=== PATIENT | female | born 1975 | race African-American/Black ===

== ENCOUNTER 2023-09-30 09:48 | Emergency (ER) | payer BC ==
[~2023-09-30] VITALS: Ht 172.7 cm; Wt 75.3 kg
[2023-09-30 10:06] VITALS: BP_SYST 154; PULSE 68; RESP 20; TEMP 98.1; O2SAT 100
[2023-09-30] MEDS ORDERED: KETOROLAC TROMETHAMINE 30 MG VIAL IM ONE (13:45)
[2023-09-30] MEDS ORDERED: HYDROcodone/ACETAMIN 10-325 MG TAB PO ONE (13:45)
[2023-09-30] MEDS ORDERED: LIDOCAINE PATCH 5% 1 EA TP ONE (13:45)
[2023-09-30] MEDS ORDERED: HYDR-3927 PO (13:52)
[2023-09-30] MEDS ORDERED: ACET325T PO (13:52)
[2023-09-30] MEDS ORDERED: NAPR-688 PO (13:52)
[2023-09-30] MEDS ORDERED: LIDO1ADH22 TP (13:52)
[2023-09-30] MEDS ORDERED: HYDROcodone/ACETAMIN 5-325 MG TAB (NORCO/ VICODIN) PO ONE (14:00)
[2023-09-30 14:28] VITALS: BP_SYST 140; PULSE 82; RESP 18; TEMP 98.1; O2SAT 100
== END 2023-09-30 14:28 | disposition home or self-care (01) ==
LOC: SED 09:48
DX: S30.0XXA Contusion of lower back and pelvis, initial encounter (principal); Z79.899 Other long term (current) drug therapy; W10.9XXA Fall (on) (from) unspecified stairs and steps, initial encounter; Y93.89 Activity, other specified; Y92.89 Other specified places as the place of occurrence of the external cause; Y99.8 Other external cause status
CPT/HCPCS: 99284; 72170; 72220; 96372; J1885